=== PATIENT | male | born 1995 | race Caucasian/White ===

== ENCOUNTER 2024-09-05 09:19 | Emergency (ER) | payer OTHER, SELFPAY ==
--- NOTE | ~2024-09-05 | XR_ITS ---
EXAMINATION: XR shoulder LT min 2V DATE: 09/05/2024 09:41 INDICATION: Left shoulder injury with palpable pop TECHNIQUE: AP internally and externally rotated, AP oblique externally rotated and axillary views of the left shoulder were obtained. COMPARISON: None FINDINGS: Normal alignment. Age-indeterminate Hill-Sachs fracture trough at the posterolateral aspect of the hu meral head which is best appreciated on the axillary projection consistent with a prior anterior herb ohumeral dislocation. No other fractures identified.. Glenohumeral joint is normal. Acromioclavicular joint is normal. Soft tissues are unremarkable. Visualized portion of the left lung are clear. IMPRESSION: Age-indeterminate Hill-Sachs fracture trough at the left humeral head consistent with prior anterior glenohumeral dislocation. Correlate with clinical history. Reviewed, dictated and finalized at location A. TROPHYSIOLOGY TECHNICIAN IMPRESSION: Age-indeterminate Hill-Sachs fracture trough at the left humeral head consisten t with prior anterior glenohumeral dislocation. Correlate with clinical history .
[2024-09-05 09:26] VITALS: BP 151/92; PULSE 95; RESP 18; TEMP 36.4; O2SAT 98
[2024-09-05 10:33] VITALS: BP 155/84; PULSE 95; O2SAT 100
--- NOTE | 2024-09-05 12:15 | ED.GENADULT ---
HPI - General Adult General Chief complaint: Fall Stated complaint: L shoulder pain Time Seen by Provider: 09/05/24 11:57 History of Present Illness HPI narrative: 29-year-old male presenting ED with left shoulder pain. Patient says he was inebriated last night and fell backwards in his bathroom. He caught himself on an outstretched arm behind him. Said he experience significant pain but is unsure if he dislocated his arm. He says he does not remember exactly what happened to alcohol use. At this time his shoulder is his only injury. He is not taking anything pain control. He does not have any weakness or any other injuries. Related Data Allergies Allergy/AdvReac Type Severity Reaction Status Date / Time No Known Allergies Allergy Verified 09/05/24 09:20 Exam Narrative: APPEARANCE: No apparent distress. Head: atraumatic. EYES: EOMI, NOSE: Atraumatic NECK: Trachea midline RESPIRATORY: No increased rate of breathing CARDIOVASCULAR: RRR, ABDOMINAL: Non-distended MUSCULOSKELETAl: Focal exam of the left upper extremity revealed no obvious deformities bruising or swelling. Radial ulnar median nerve motor function is intact. Radian ulnar pulses are intact. No numbness over the lateral deltoid. NEURO: Alert. Moving 4/4 extremities SKIN:: Warm, dry. Normal color PSYCHIATRIC: Normal affect Course Vital Signs Vital signs: Vital Signs Temperature 97.6 F 09/05/24 09:26 Pulse Rate 95 09/05/24 09:26 Respiratory Rate 18 09/05/24 09:26 Blood Pressure 151/92 H 09/05/24 09:26 Pulse Oximetry 98 09/05/24 09:26 Temperature 97.6 F 09/05/24 09:26 Pulse Rate 74 09/05/24 12:29 Respiratory Rate 18 09/05/24 12:29 Blood Pressure 153/87 H 09/05/24 12:29 Pulse Oximetry 98 09/05/24 12:29 Medical Decision Making [facility] Narrative Medical decision making narrative: -Course: 29-year-old male presenting with left shoulder pain after a fall toxic it. X-ray showed a Hill-Sachs deformity which could indicate a dislocation with self reduction. These results were discussed this with the patient. Options discussed were to put him in a shoulder immobilizer and have him follow-up Orthopedics versus treatment with pain medication. Patient does not want to wear a shoulder immobilizer and is comfortable following up with primary care physician. He will return if he develops any new or worsening symptoms. -DDX includes but is not limited to: Muscle strain, dislocation Vital Signs Vital Signs: Vital Signs Temperature 97.6 F 09/05/24 09:26 Pulse Rate 95 09/05/24 09:26 Respiratory Rate 18 09/05/24 09:26 Blood Pressure 151/92 H 09/05/24 09:26 Pulse Oximetry 98 09/05/24 09:26 Temperature 97.6 F 09/05/24 09:26 Pulse Rate 74 09/05/24 12:29 Respiratory Rate 18 09/05/24 12:29 Blood Pressure 153/87 H 09/05/24 12:29 Pulse Oximetry 98 09/05/24 12:29 Discharge Plan Discharge Clinical Impression: Acute shoulder pain Patient Disposition: Home, Self-Care Condition: Stable Instructions: Antibiotic Form, Shoulder Dislocation (ED) Additional Instructions: You were seen in the emergency department for shoulder pain. Your x-ray showed a possible injury due to a shoulder dislocation. We discussed a shoulder immobilizer and you have declined. Please follow-up with your primary care physician for further management. If you develop severe shoulder pain, weakness in your arm please return to the ED immediately. Patient Language: [place] Citizen Prescriptions: New ibuprofen 800 mg tablet 800 mg PO TID PRN (Reason: pain) 7 Days Qty: 21 0RF acetaminophen 500 mg tablet 1,000 mg PO TID PRN (Reason: ed) 7 Days Qty: 42 0RF methocarbamol 750 mg tablet 1,500 mg PO TID Qty: 35 0RF Follow-up/Referrals: PHYSICIAN,[employer] [Primary Care Provider] -
[2024-09-05 12:29] VITALS: BP 153/87; PULSE 74; RESP 18; O2SAT 98
[2024-09-05] MEDS: methocarbamoL 750 MG TABLET 1500 MG PO (12:29)
[2024-09-05] MEDS: ACETAMINOPHEN 500 MG TABLET 1000 MG PO (12:29)
[2024-09-05] MEDS: IBUPROFEN 400 MG TABLET 800 MG PO (12:29)
[2024-09-05 12:52] VITALS: RESP 16; O2SAT 96
--- OUTSIDE RECORDS SUMMARY | 2024-09-05 13:32 | XMS_ITS | Continuity of Care Document ---
Author Organization [facility] Address [address] [place] [address] Phone Care Team Providers Care Rn Primary Care Name Role Phone Unavailable Unavailable Unavailable Advance Directives Directive Yes / No Effective Date File Name No Information Encounters Encounter Description Practice Location Reason(s) For Visit Diagnoses Date Provider Providers Copied on Encounter [facility], [address] [place] [address], [id number], [place] tel:[phone] [facility] No Information [id number] No Information Family History Family Member Type Diagnosis Age At Onset No Information Payers Payer name Insurance type Covered democrat ID Authoriza tion(s) No Information Social History Type Description Quantity Date Captured Comments Sex Male Smoking Status No Information Chief Complaint And Reason For Visit No Information Reason For Referral Reason For Referral No Information History Of Present Illness Encounter Date Complaint History Of Prese nt Illness No Information Functional Status Date Functional Assessmen t No Information Instructions Date Instruction Additional Infor mation No Information Assessments Type Assessment Date No Information Patient Care Teams Name Effective Dates (start - stop) Status Members No Information
--- OUTSIDE RECORDS SUMMARY | 2024-09-05 13:32 | XMS_ITS | Clinical Summary ---
Author Organization [facility] Address [address] [place] [id number] Phone [employer] [email or web address] Care Team Providers Care Rn Family Name Role Phone Unavailable Primary Care Provider Unavailabl e Allergies No known active allergies Medications lisinopril-hydr oCHLOROthiazide (ZESTORETIC) 20-12.5 MG per tablet Take 1 tablet by mouth 1 (one) time each day. Active ALPRAZolam (XANAX) 0.5 MG tablet TAKE 1 TABLET BY MOUTH EVERY DAY NEEDED 28 DAYS 07/07/2023 Active busPIRone (BUSPAR) 15 MG tablet Take 15 mg by mouth in the morning and 15 mg at noon and 15 mg in the evening. 07/14/2023 Active citalopram (CeleXA) 10 MG tablet TAKE 1 TABLET BY MOUTH EVERY DAY FOR 90 DAYS 05/25/2023 Active citalopram (CeleXA) 20 MG tablet TAKE 1 TABLET BY MOUTH EVERY DAY FOR 90 DAYS 07/01/2023 Active lisinopril (ZESTRIL) 40 MG tablet TAKE 1 TABLET BY MOUTH EVERY DAY FOR 90 DAYS 05/25/2023 Active Active Problems No known active problems Social History Tobacco Use Types Packs/Day Years Used Date Smoking Tobacco: Never Smokeless Tobacco: Never Tobacco Cessation:Counseling Given: Not Answered Sex and Gender Information Value Date Recorded Sex Assigned at Not on file Legal Sex Male 12:03 PM CDT Gender Identity Not on file Sexual Orientation Not on file Last Filed Vital Signs Vital Sign Reading Time Taken Comments Blood Pressure 149/112 08/18/2023 10:23 AM EST Pulse 105 08/18/2023 10:23 AM EST Temperature - - Respiratory Rate 16 08/18/2023 10:03 AM EST Oxygen Saturation 97% 08/18/2023 10:03 AM EST Inhaled Oxygen Concentration - - Weight - - Height - - Body Mass Index - - Plan of Treatment Health Maintenance Due Date Last Done Comments Dental Cleaning/Exam 1996 Tetanus (Tdap or Td) Immunization 2007 Hepatitis B Immunization (1 of 3 - 19+ 3-dose series) 2015 Tetanus Diphtheria and Pertussis Immunization (1 - Tdap) 2015 Covid-19 Immunization (3 - season) 2024 11/20/2020, 10/30/2020 Influenza Immunization (#1) 2024 04/30/2021 HIB Immunization Aged Out No longer e ligible based on patient's age to complete this topic HPV Immunization Aged Out No longer e ligible based on patient's age to complete this topic Hepatitis A Immunization Aged Out No longer eligible based on patient's age to complete this topic Pneumococcal: Ped (0 to 5 Yrs) and At-Risk Member (6 to 64 Yrs) Aged Out No longer eligible b ased on patient's age to complete this topic Polio Immunization Aged Out No longer eligible based on patient's age to complete this topic Varicella Immunization Aged Out No lo nger eligible based on patient's age to complete this topic
== END 2024-09-05 12:53 | disposition home or self-care (01) ==
LOC: ANHED 12:29
PROVIDERS: Emergency Provider Emergency Medicine
DX: M25.512 Pain in left shoulder (principal); W18.30XA Fall on same level, unspecified, initial encounter
CPT/HCPCS: 73030; 99283; A9270